=== PATIENT | male | born 1985 | race Caucasian/White ===

== ENCOUNTER 2017-09-07 14:31 | Observation (INO) | payer SELFPAY ==
[2017-09-07 15:30] LABS: #Basophils 0.1 thou/uL (0.0-0.2); #Eosinphils 0.3 thou/uL (0.0-0.7); #Lymphocytes 1.8 thou/uL (1.20-3.40); #Monocytes 0.5 thou/uL (0.11-0.59); #Neutrophils 6.2 thou/uL (1.40-6.50); %Basophils 0.8 % (0.0-1.0); %Eosinophils 3.2 % (0.0-10.0); %Lymphocytes 20.1 % (21.0-51.0); %Neutrophils 69.9 % (42.0-75.0); Hemoglobin 13.1 g/dL (14.0-18.0); Mean Corpuscular HGB CONC 33.3 g/dL (32.0-36.0); Mean Platelet Volume 8.1 fL (7.4-10.4); Platelet Count 199 thou/uL (130-400); RBC Distribution Width 13.4 % (11.5-14.5); White Blood Cell (WBC) Count 8.9 thou/uL (4.8-10.8)
--- NOTE | 2017-09-07 15:31 | RAD ---
PA AND LATERAL VIEWS CHEST: Date: 09/07/17 HISTORY: Dyspnea. FINDINGS: Comparison made with exam dated 02/27/15. The heart size is normal. No focal areas of consolidation, pneumothorax, or pleural effusions are see n. There is suggestion of a mass in the left hilar region. This was not seen on the previous study. T here is continued elevation of the right hemidiaphragm. IMPRESSION: Findings suspicious for left hilar mass. Further evaluation with contrast enhanced CT scan would be h elpful. POS: [facility]
[2017-09-07] MEDS ORDERED: Aspirin 325 MG TAB ONE (15:46)
[2017-09-07] MEDS ORDERED: Nitroglycerin 2% Ointment 1 INCH/1 GM Packet ONE (15:46)
[2017-09-07 15:47] LABS: ALT (SGPT) 44 U/L (8-55); AST (SGOT) 30 U/L (5-34); Albumin 3.8 g/dL (3.5-5.0); Alkaline Phosphatase 73 U/L (40-150); Anion Gap 12 mmol/L (10-20); BUN (Urea Nitrogen) 21 mg/dL (8.9-20.6); Bilirubin, Total 0.7 mg/dL (0.2-1.2); CK (CPK) 119 U/L (30-200); Calc. Creatinine Clearance 0 mL/min (70-130); Calcium 8.7 mg/dL (7.8-10.44); Carbon Dioxide 30 mmol/L (22-29); Chloride 102 mmol/L (98-107); Estimated GFR-MDRD 90; Globulin 2.8 g/dL (2.4-3.5); Glucose 124 mg/dL (70-105); Lipase 25 U/L (8-78); Potassium 4.1 mmol/L (3.5-5.1); Protein, Total 6.6 g/dL (6.0-8.3); Sodium 140 mmol/L (136-145)
[2017-09-07 15:49] LABS: CKMB 2.2 ng/mL (0-6.6); Troponin I Less than 0.010 ng/mL (< 0.028)
[2017-09-07 18:41] LABS: Troponin I Less than 0.010 ng/mL (< 0.028)
[2017-09-07] MEDS: Nitroglycerin 2% Ointment 1 INCH/1 GM Packet TOP SCH (21:56)
[2017-09-07 21:59] LABS: Troponin I Less than 0.010 ng/mL (< 0.028)
[2017-09-08] MEDS ORDERED: Nitroglycerin 0.4 MG TAB (25 Tab Bottle) PO PRN (00:32)
[2017-09-08] MEDS ORDERED: Bisacodyl 5 MG TAB PO PRN (00:32)
[2017-09-08] MEDS ORDERED: Acetaminophen 650 MG Suppository PR PRN (00:32)
[2017-09-08] MEDS: Nicotine 14 MG PATCH TD SCH (01:00)
--- NOTE | 2017-09-08 01:28 | HP ---
PRIMARY CARE PHYSICIAN: None. CHIEF COMPLAINT: Chest pain. HISTORY OF PRESENT ILLNESS: Mr. Mcnally is a pleasant 32-year-old gentleman who was seen at [facility] on 09/08/2017: transfer from [facility] Emergency [facility]. He woke up around 3:00 a.m. yesterday with retrosternal chest pain. He describes it as dull, nonradiating, accompanied by shortness of breath, but not by nausea. He cannot recall any aggravating factors. He reports that oxygen helped with the pain. He also reports a dry cough over the last 2-3 weeks. He also reports bilateral leg swelling over the last 1 week. He also reports development of itchy lesions over both legs over the last one week. He denies any fevers or chills. At [facility] Room, he was also diagnosed with left hilar mass and was transferred to the hospital for further management. REVIEW OF SYSTEMS: All other systems were reviewed and were negative except for the pertinent positives mentioned above. PAST MEDICAL HISTORY: Morbid obesity, asthma, and fatty liver. PAST SURGICAL HISTORY: None. PSYCHIATRIC HISTORY: Anxiety. SOCIAL HISTORY: Patient drinks alcohol occasionally. He denies recreational drug use. He smokes half a pack of cigarettes a day. FAMILY HISTORY: Congestive heart failure in his maternal grandmother. ALLERGIES: No known drug allergies. HOME MEDICATIONS: None PHYSICAL EXAMINATION: GENERAL: Mr. Mcnally is awake and alert, not in acute distress. He is morbidly obese, with a BMI of 68.2. VITAL SIGNS: Blood pressure is 169/80. Pulse is 90. He is breathing at rate of 16, and saturating 93% on room air. He is afebrile. EYES: No scleral icterus. No conjunctival pallor. ENT: Moist mucosal membranes, no oropharyngeal erythema or exudates. NECK: Supple, nontender. Trachea is midline. RESPIRATORY: Accessory muscles of breathing are not active. Chest wall movements are symmetric bilaterally. Lungs are clear to auscultation without wheeze, rhonchi, or crepitations. CARDIOVASCULAR: S1, S2 are heard, regular. Peripheral pulses palpable. No carotid bruit, no pericardial rub. ABDOMEN: Distended, nontender, bowel sounds are heard, no hepatomegaly, no splenomegaly. NEUROLOGIC: Cranial nerves II-XII intact, deep tendon reflexes 2+. MUSCULOSKELETAL: Power is 5/5 in all 4 extremities. He has bilateral lower extremity edema. SKIN: He has nontender papular lesions over both chins. LYMPHATIC: No cervical lymphadenopathy. PSYCHIATRIC: Normal mood, normal affect, patient is oriented to person, place, and time. DATABASE: Mr. Mcnally's labs and investigations were reviewed. I reviewed his electrocardiogram, which shows normal sinus rhythm, no ST changes to suggest an acute coronary syndrome. I also reviewed his chest x-ray, which shows lungs that are clear of infiltrates, but he appears to have a left hilar mass. He has normal white count, normocytic anemia with hemoglobin 13.1, normal platelet count, elevated D-dimer of 1.65, normal sodium, normal potassium , elevated carbon dioxide of 30, normal creatinine, normal liver profile, and troponin I that is negative x3. Lipase is normal. ASSESSMENT AND PLAN: Mr. Mcnally is a pleasant 32-year-old gentleman who was seen at [facility]. His problem list includes: 1. Chest pain: Mr. Mcnally will be admitted to the hospital on observation status for telemetry monitoring. We will order stress test, rule out cardiac etiology. 2. Elevated D-dimer: We will order lower extremity Dopplers to rule out deep venous thrombosis and 2D echocardiogram to evaluate right ventricle. Unable to obtain CT scan, since he will not fit under the CT scanner at this facility. 3. Asthma: Stable. 4. Anemia: Stable, recheck hemoglobin level. 5. Tobacco use: Patient has been counseled regarding tobacco cessation, we will start nicotine replacement therapy. 6. Hilar mass: Pt will need to followup with edi consultant as outpatient for further workup. He has been advised regarding this. LEVEL OF RISK: High. LEVEL OF COMPLEXITY: High. MTDD
[2017-09-08] MEDS: Acetaminophen 325 MG TAB PO PRN ×2 (02:17→19:22)
[2017-09-08] MEDS: Nitroglycerin 2% Ointment 1 INCH/1 GM Packet TOP SCH (04:00)
[2017-09-08 05:25] LABS: #Eosinphils 0.3 thou/uL (0.0-0.7); #Lymphocytes 1.6 thou/uL (1.20-3.40); #Monocytes 0.6 thou/uL (0.11-0.59); #Neutrophils 6.8 thou/uL (1.40-6.50); %Basophils 0.4 % (0.0-1.0); %Eosinophils 3.6 % (0.0-10.0); %Lymphocytes 16.7 % (21.0-51.0); %Monocytes 6.1 % (0.0-10.0); %Neutrophils 73.2 % (42.0-75.0); Hemoglobin 12.7 g/dL (14.0-18.0); Mean Corpuscular Hemoglobin 28.7 pg (27.0-31.0); Mean Corpuscular Volume 89.7 fl (80.0-94.0); Mean Platelet Volume 7.8 fL (7.4-10.4); Platelet Count 258 thou/uL (130-400); RBC Distribution Width 13.7 % (11.5-14.5); Red Blood Cell (RBC) Count 4.42 mill/uL (4.70-6.10); White Blood Cell (WBC) Count 9.3 thou/uL (4.8-10.8)
[2017-09-08 05:28] LABS: Anion Gap 10 mmol/L (10-20); BUN (Urea Nitrogen) 18 mg/dL (8.9-20.6); Calc. Creatinine Clearance 379 mL/min (70-130); Calcium 8.6 mg/dL (7.8-10.44); Carbon Dioxide 34 mmol/L (22-29); Chloride 100 mmol/L (98-107); Estimated GFR-MDRD Greater than 90; Glucose 124 mg/dL (70-105); Sodium 140 mmol/L (136-145)
[2017-09-08] MEDS ORDERED: Enoxaparin Sodium 40 MG/0.4 ML SYRINGE SC SCH (09:00)
[2017-09-08] MEDS: Aspirin 325 MG TAB PO SCH (09:36)
[2017-09-08] MEDS ORDERED: Bumetanide 1 MG/4 ML VIAL IVP SCH ×2 (09:45→10:00)
[2017-09-08] MEDS ORDERED: Enoxaparin Sodium 100 MG/ML SYRINGE SC SCH (10:15)
[2017-09-08] MEDS ORDERED: Enoxaparin Sodium 80 MG/0.8 ML SYRINGE SC SCH (10:15)
--- NOTE | 2017-09-08 11:55 | ULT ---
BILATERAL LOWER EXTREMITY VENOUS ULTRASOUND WITH DOPPLER: HISTORY: Bilateral leg swelling. Edema. COMPARISON: None. TECHNIQUE: Martin scale, color flow, Doppler imaging, and spectral waveform analysis was performed of the left and right lower extremity venous system. FINDINGS: Bilaterally, there is compressibility, presence of flow, and augmentation of the common femoral vein, femoral vein, and popliteal vein. There is flow in bilateral greater saphenous veins, profunda vein s, and posterior tibial veins. IMPRESSION: No evidence of thrombus in left or right lower extremity deep venous system. POS: [facility]
[2017-09-08 13:43] LABS: Hemoglobin 13.6 g/dL (14.0-18.0); Platelet Count 267 thou/uL (130-400)
[2017-09-08 14:05] LABS: Calc. Creatinine Clearance 362 mL/min (70-130); Estimated GFR-MDRD Greater than 90
[2017-09-08] MEDS: Bumetanide 1 MG/4 ML VIAL IVP SCH (15:20)
[2017-09-08] MEDS: Enoxaparin Sodium 100 MG/ML SYRINGE SC SCH (20:46)
[2017-09-08] MEDS: Enoxaparin Sodium 80 MG/0.8 ML SYRINGE SC SCH (20:47)
[2017-09-09] MEDS: Nicotine 14 MG PATCH TD SCH (01:53)
[2017-09-09] MEDS: Bumetanide 1 MG/4 ML VIAL IVP SCH (09:45)
[2017-09-09] MEDS: Aspirin 325 MG TAB PO SCH (09:57)
[2017-09-09] MEDS: Enoxaparin Sodium 80 MG/0.8 ML SYRINGE SC SCH (10:00)
[2017-09-09] MEDS: Enoxaparin Sodium 100 MG/ML SYRINGE SC SCH (10:00)
--- NOTE | 2017-09-09 14:23 | PDOC.PN ---
- Subjective Encounter Start Date: 09/09/17 Encounter Start Time: 09:00 Subjective: pt up in bed no complains - Objective Vital Signs & Weight: Vital Signs (12 hours) Temp Pulse Resp BP Pulse Ox 09/09/17 11:43 97.5 F L 94 18 140/67 90 L 09/09/17 07:58 97.9 F 88 16 143/66 H 95 09/09/17 07:51 97.4 F L 84 26 H 09/09/17 04:17 97.4 F L 84 26 H 146/75 H 95 Weight Weight 504 lb 14.4 oz I&O: 09/08/17 09/09/17 09/10/17 06:59 06:59 06:59 Intake Total 700 610 Output Total 6850 Balance 700 -8070 Result Diagrams: 09/08/17 13:35 09/08/17 13:35 Phys Exam - Physical Examination HEENT: PERRLA, moist MMs, sclera anicteric, TM's clear, oral pharynx no lesions , 2+ tonsils Neck: no nodes, no JVD, supple, full ROM Respiratory: no wheezing, no rales, no rhonchi, wheezing present, clear to auscultation bilateral Cardiovascular: RRR, no significant murmur, no rub, gallop, irregular Gastrointestinal: soft, non-tender, no distention, positive bowel sounds Dx/Plan - Plan 1) sob 2) left hilar mass 3) morbid obesity plan: pt had positive ddimer was hypoxic and sob. will conitnue PE tx. Called multiple facility ( hospital) to get a ct chest to rule out PE but due to his weight unable to do so yestarday. [facility] be [facility] for ct chest. echo ordered pending read. trop x3 negative. * . Review of Systems - Review of Systems Respiratory: Shortness of Breath Cardiovascular: chest pain Gastrointestinal: negative: Nausea, Vomiting, Abdominal Pain, Diarrhea, Constipation, Melena, Hematochezia, Other Genitourinary: negative: Dysuria, Frequency, Incontinence, Hematuria, Retention , Other Musculoskeletal: negative: Neck Pain, Shoulder Pain, Arm Pain, Back Pain, Hand Pain, Leg Pain, Foot Pain, Other - Medications/Allergies Allergies/Adverse Reactions: Allergies Allergy/AdvReac Type Severity Reaction Status Date / Time No Known Drug Allergies Allergy Verified 09/08/17 17:23 Medications: Current Medications Acetaminophen (Tylenol) 650 mg PO Q4H PRN PRN Reason: Headache/Fever or Pain Last Admin: 09/08/17 19:22 Dose: 650 mg Acetaminophen (Tylenol) 650 mg LA Q4H PRN PRN Reason: Headache/Fever or Pain Aspirin (Aspirin) 325 mg PO QAM-WM [facility] Last Admin: 09/09/17 09:57 Dose: 325 mg Bisacodyl (Dulcolax) 10 mg PO DAILYPRN PRN PRN Reason: Constipation Bumetanide (Bumex) 1 mg IVP 0600,1400 [facility] Last Admin: 09/09/17 09:45 Dose: Not Given Enoxaparin Sodium (Lovenox) 100 mg SC 0900,2100 [facility] Last Admin: 09/09/17 10:00 Dose: 100 mg Enoxaparin Sodium (Lovenox) 80 mg SC 0900,2100 [facility] Last Admin: 09/09/17 10:00 Dose: 80 mg Nicotine (Nicoderm Patch) 14 mg TD Q24HR [facility] Last Admin: 09/09/17 01:53 Dose: Not Given Nitroglycerin (Nitrostat) 0.4 mg PO Q5MIN PRN PRN Reason: Chest Pain Sodium Chloride (Flush - Normal Saline) 10 ml IVF Q12HR [facility] Last Admin: 09/09/17 10:00 Dose: 10 ml Sodium Chloride (Flush - Normal Saline) 10 ml IVF PRN PRN PRN Reason: Saline Flush
[2017-09-09 16:07] VITALS: BP 136/73; TEMP 98
[2017-09-09] MEDS ORDERED: Bumetanide 1 MG/4 ML VIAL IVP SCH (17:00)
--- NOTE | 2017-09-10 14:08 | DIS ---
DATE OF ADMISSION: 09/08/2017 DATE OF DISCHARGE: 09/09/2017 DISCHARGE DIAGNOSES: 1. Shortness of breath. 2. Lower extremity edema. 3. Left hilar mass. HOSPITAL COURSE: The patient is a 32-year-old morbidly obese, weight 517 pounds, who presented to [facility] with complaints of shortness of breath and worsening lower extremity edema. Patient had a chest x-ray that was done outside, which indicated a possible left hilar mass. A D-dimer was checke d, which was elevated. Given the patient's shortness of breath, elevated D-dimer and chest pain, [facility] had initially been scheduled for a stress test. However, due to his weight, unable to undergo s tress test. Patient then was supposed to get a CT chest with contrast to rule out a PE and further e valuation of the left hilar mass. Due to his morbid obesity, several facilities were called in [facility] to find a scanner that would take the patient. Patient was finally accepted by [facility] t o do a CAT scan. The patient underwent a CAT scan on 09/09/2017, which did not indicate no PE and in dicated just some subcutaneous fat and there was no hilar mass that was indicated. The patient was t hen discharged home. Patient also had an echocardiogram done while in the hospital indicated an EF o f 60-65% with slightly dilated right ventricle. Patient was notified about the patient and family we re educated on weight loss and diet and exercise. DISCHARGE MEDICATIONS: Patient was given Lasix 40 mg p.o. daily for lower extremity edema. He was a lso given albuterol 2 puffs q.4 hours p.r.n. for some shortness of breath or wheezing. He has been g iven a lab slip to check his BMP in a week and was given paperwork to find clinics that will take a s liding scale based on his income to his insurance kicks in couple months. PHYSICAL EXAMINATION: VITAL SIGNS: Vital signs were 97.9, 88, , blood pressure 140/67. He is 94% on room air. GENERAL: He is awake, alert, oriented x3, in no apparent distress. CV: S1, S2 present. No murmurs, rubs, or gallops. ABDOMEN: Soft, nontender. Bowel sounds are present x2. EXTREMITIES: Lower extremity still has +1 pitting edema. Pedal pulses present x2. The patient again will follow up with PCP as an outpatient.
== END 2017-09-09 18:24 | disposition home or self-care (01) ==
LOC: SCSER 14:31 → 2SW 16:51
PROVIDERS: ADMIT Internal Medicine; ATTEND Internal Medicine
DX: R06.02 Shortness of breath (principal); R07.9 Chest pain, unspecified; R91.8 Other nonspecific abnormal finding of lung field; J45.909 Unspecified asthma, uncomplicated; D64.9 Anemia, unspecified; R60.0 Localized edema; K76.0 Fatty (change of) liver, not elsewhere classified; F17.210 Nicotine dependence, cigarettes, uncomplicated; E66.01 Morbid (severe) obesity due to excess calories
CPT/HCPCS: 36415; 71046; 80048; 80053; 82550; 82553; 83615; 83690; 84484; 85025; 85379; 93005; 93306; 93970; 94760; 96372; 96374; 96376; A4216; G0378; J1650; J3490

== ENCOUNTER 2017-10-15 13:48 | Emergency (ER) | payer SELFPAY ==
--- NOTE | 2017-10-15 15:43 | RAD ---
FLUOROSCOPIC GUIDED LUMBAR PUNCTURE: HISTORY: Meningitis. FINDINGS: After explaining the procedure and answering all questions, the patient was placed on the fluoroscopy table in prone position. Sterile technique, buffered local anesthesia, fluoroscopic guidance, and a posterior L2-3 approach were used to carefully advance a 2-gauge needle to the thecal sac. A total volume of 9 cc clear CSF was collected. Opening pressure was calculated at 45 cm of water. The needle was removed. The patient tolerated the procedure well and was returned in unchanged condi tion. Fluoro time=4.0 minutes. IMPRESSION: 1. Technically successful fluoroscopic-guided lumbar puncture. 2. Elevated opening cerebrospinal fluid pressure of 45 cm water. 3. Pathology pending. POS: [facility]
[2017-10-15 16:14] LABS: Color Of CSF Supernatant COLORLESS (Colorless); Tube # 2; Unspun CSF Color COLORLESS (Colorless)
[2017-10-15 16:19] LABS: CSF Source CSF; Clarity Clear (Clear); RBC Count - Manual 960 /cumm (None Seen); Tube # 1; WBC/NonHematics Count - Manual 0 /cumm (0-5)
[2017-10-15 16:20] LABS: CSF Source CSF; Clarity Clear (Clear); RBC Count - Manual 45 /cumm (None Seen); Tube # 4; WBC/NonHematics Count - Manual 0 /cumm (0-5)
[2017-10-15 16:23] LABS: CSF, Glucose 69 mg/dl (40-70); CSF, Protein 22 mg/dL (15-40)
== END 2017-10-15 17:38 | disposition home or self-care (01) ==
LOC: ERS 13:48
DX: B34.9 Viral infection, unspecified (principal); E66.9 Obesity, unspecified; J45.909 Unspecified asthma, uncomplicated; F41.9 Anxiety disorder, unspecified; Z87.891 Personal history of nicotine dependence
CPT/HCPCS: 62270; 82945; 84157; 87070; 87205; 89051; 94660

== ENCOUNTER → 2017-10-15 | Emergency (ER) | payer SELFPAY ==
[~2017-10-15] MED LIST: Acetaminophen 500 MG TAB ONE; Lidocaine 1% PF 5 ML VIAL ONE; Metoclopramide HCl 10 MG/2 ML VIAL ONE; diphenhydrAMINE 50 MG/ML VIAL ONE
[2017-10-15 11:53] LABS: #Basophils 0.1 thou/uL (0.0-0.2); #Lymphocytes 0.9 thou/uL (1.20-3.40); #Monocytes 0.8 thou/uL (0.11-0.59); #Neutrophils 8.4 thou/uL (1.40-6.50); %Basophils 0.7 % (0.0-1.0); %Eosinophils 0.3 % (0.0-10.0); %Lymphocytes 8.8 % (21.0-51.0); %Monocytes 8.2 % (0.0-10.0); Hemoglobin 13.3 g/dL (14.0-18.0); Mean Corpuscular HGB CONC 32.9 g/dL (32.0-36.0); Mean Corpuscular Hemoglobin 28.6 pg (27.0-31.0); Mean Platelet Volume 8.8 fL (7.4-10.4); Platelet Count 203 thou/uL (130-400); RBC Distribution Width 14.3 % (11.5-14.5); Red Blood Cell (RBC) Count 4.66 mill/uL (4.70-6.10); White Blood Cell (WBC) Count 10.3 thou/uL (4.8-10.8)
[2017-10-15 11:56] LABS: Bilirubin Negative (Negative); Blood, Urine Negative (Negative); Clarity Clear (Clear); Glucose, Urine (Dipstick) Negative (Negative); Leukocyte Negative (Negative); Nitrite Negative (Negative); Protein, Urine (Dipstick) Trace mg/dL (Neg-Trace); Specific Gravity, Urine 1.015 (1.005-1.030); Urobilinogen 0.2 mg/dL (0.2-1.0)
[2017-10-15 12:02] LABS: ALT (SGPT) 29 U/L (8-55); AST (SGOT) 31 U/L (5-34); Albumin 3.8 g/dL (3.5-5.0); Alkaline Phosphatase 76 U/L (40-150); Anion Gap 13 mmol/L (10-20); BUN (Urea Nitrogen) 13 mg/dL (8.9-20.6); Bilirubin, Total 1.1 mg/dL (0.2-1.2); Calc. Creatinine Clearance 0 mL/min (70-130); Calcium 8.7 mg/dL (7.8-10.44); Carbon Dioxide 30 mmol/L (22-29); Chloride 98 mmol/L (98-107); Estimated GFR-MDRD Greater than 90; Globulin 2.9 g/dL (2.4-3.5); Glucose 99 mg/dL (70-105); Potassium 4.1 mmol/L (3.5-5.1); Protein, Total 6.7 g/dL (6.0-8.3); Sodium 137 mmol/L (136-145)
--- NOTE | 2017-10-15 12:10 | RAD ---
CHEST 1 VIEW: Date: 10/15/17 HISTORY: Fever. COMPARISON: 09/07/17. FINDINGS: Cardiac silhouette is magnified by projection. Pulmonary vasculature is engorged. Mediastinum is midl ine. No lobar consolidation or evidence of pneumothorax. IMPRESSION: Mild pulmonary vascular congestion. POS: H
[2017-10-15 12:20] LABS: CKMB 1.7 ng/mL (0-6.6); Troponin I Less than 0.010 ng/mL (< 0.028)
== END ==
LOC: SCSER 11:20
DX: I50.9 Heart failure, unspecified (principal); E66.9 Obesity, unspecified; J45.909 Unspecified asthma, uncomplicated; F41.9 Anxiety disorder, unspecified; F17.210 Nicotine dependence, cigarettes, uncomplicated
CPT/HCPCS: 71045; 80053; 81003; 82553; 83605; 83880; 84484; 85025; 87040; 94760; 96361; 96374; 96375; J1200; J2001; J2765

== ENCOUNTER 2024-02-01 15:33 | Emergency (ER) | payer SELFPAY ==
[2024-02-01] MEDS ORDERED: Lidocaine 4% Patch TD SCH (18:00)
[2024-02-01] MEDS ORDERED: Ketorolac Tromethamine 30 MG (1 mL) VIAL ONE (18:21)
[2024-02-01] MEDS ORDERED: Lidocaine 4% Patch ONE (18:38)
[2024-02-02] MEDS ORDERED: Transdermal Patch Removal TOP SCH (06:00)
== END 2024-02-01 18:45 | disposition home or self-care (01) ==
LOC: ERS 15:33
DX: M54.50 Low back pain, unspecified (principal); F17.210 Nicotine dependence, cigarettes, uncomplicated
CPT/HCPCS: 96372; J1885